=== PATIENT | male | born 1965 | race Caucasian/White ===

== ENCOUNTER 2024-08-14 06:04 | Day surgery (SDC) | payer OTHER ==
[2024-08-14 06:24] VITALS: TEMP 96.1
[2024-08-14] MEDS ORDERED: XYLOCAINE 1% HCL 20 ML MDV ONE (06:48)
[2024-08-14 08:12] VITALS: BP 144/84; PULSE 62; RESP 18; O2SAT 97
--- NOTE | 2024-08-15 18:08 | OP ---
SURGERY DATE/TIME: 08/14/2024 [id number] PREOPERATIVE DIAGNOSIS: Right trigger thumb. POSTOPERATIVE DIAGNOSIS: Right trigger thumb. PROCEDURE: Release of the A1 briseyda, right thumb. SURGEON: Alexis Valentin II, DO. ANESTHESIA: Local with 1% Xylocaine plain. DESCRIPTION OF PROCEDURE AND FINDINGS: The patient was identified and informed consent was obtained. The patient was taken to the operative suite and placed in a supine position on the operating table where the right upper extremity was prepped and draped in the usual sterile fashion. The area over the A1 briseyda of the thumb was anesthetized with 1% Xylocaine plain. Once an appropriate level of anesthesia had been obtained, incision was carried out longitudinally over the region of the A1 briseyda. Skin was incised. Dissection was carried out through the subcutaneous tissue. Ragnell retractors were placed medially and laterally. The flexor tendon was easily identified as was the A1 briseyda, which was then released with Stephens tenotomy scissors. Patient was asked to actively flex and extend the thumb, and there was no further triggering as had been noted prior to the release. At this point, the wound was copiously irrigated, neurovascular bundles inspected and noted to be intact. The wound was then irrigated and closed with interrupted 5-0 nylon suture. Adaptic, 4 x 4's, and a sterile dressing applied. Patient was transferred to the cart and taken to Day Surgery in satisfactory condition, having tolerated the procedure well.
== END 2024-08-14 08:18 | disposition home or self-care (01) ==
LOC: SDC 06:04
PROVIDERS: ATTEND Orthopaedic Surgery
DX: M65.311 Trigger thumb, right thumb (principal); E11.9 Type 2 diabetes mellitus without complications
CPT/HCPCS: 82947